=== PATIENT | female | born 1985 | race Asian ===

== ENCOUNTER 2019-02-06 22:49 | Inpatient (IN) | payer BC ==
[~2019-02-06] VITALS: Ht 152.4 cm; Wt 78.6 kg
[~2019-02-06 22:49] MED LIST: ACIDOPHILUS PO; BCP TD; BENADRYL25 M2; CEFIXIME; CEPHALEXIN500 M1 PO; LEVOXYL0.1 MG PO; LORTAB 5/500 501 TAB PO; MOTRIN 600600 MG/TAB PO; PERCOCET 325 MG1 TA2 PO; PHENERGAN 25 TA25 MG PO; PRENATAL1 TA1 PO; SYNTHROID0.088 MG/T PO
--- NOTE | 2019-02-06 22:55 | NUR ---
G3L2 at 39 weeks and 4 days arrives to unit with complaint of contractions every 5 minutes. Pt visibly uncomfortable but breathing through contractions well. Pt with a history of precipitous delivery with previous delivery. History of 2 uncomplicated vaginal deliveries. Pt oriented to room, bed in low and locked position, call light within reach. US and toco explained and applied. SVE 5-6/70/-[address]. Dr. Gavin notified, see physician notification. Admission assessment started.
[2019-02-06 23:15] VITALS: BP 118/71; PULSE 101; TEMP 98.1
--- NOTE | 2019-02-06 23:25 | NUR ---
18 gauge IV placed in right forearm after 1 attempt. Admission labs obtained off of IV start. Lactated Ringers infusing to gravity. Pen G started shortly after.
--- NOTE | 2019-02-06 23:30 | NUR ---
2330 - Leander Ledezma CRNA at bedside for epidural placement. Procedure risks and benefits explained to patient, pt verbalized understanding. 2333 - Pt positioned into sitting on edge of bed. 2337 - Single shot by DIOGENES Guido at this time, pt denies any adverse reactions. 2345 - Pt repositioned to laying to wedge left. Safety precautions reviewed with spouse and patient. Call light within reach.
[2019-02-06 23:45] VITALS: BP 131/58; PULSE 111; TEMP 98.2
[2019-02-06 23:48] LABS: BASO % 0.1 % (0.0-2.0); EOS # 0.1 (0.0-0.7); EOS % 1.3 % (0-4.0); GRAN # 7.1 (1.4-6.5); GRAN % 70.7 % (42.2-75.2); HEMOGLOBIN 13.2 g/dl (12.5-16.0); LYMPH # 2.1 (1.2-3.4); LYMPH % 20.9 % (20.0-51.0); MEAN CELL VOLUME 81 fl (80.0-100.0); MEAN CORPUSCULAR HEMOGLOBIN 26 pg (27.0-31.0); MEAN CORPUSCULAR HGB CONC 32 g/dl (33.0-37.0); MEAN PLATELET VOLUME 10.5 fl (7.4-10.4); MONO # 0.6 (0.1-0.6); MONO % 6.1 % (1.7-9.3); PLATELET COUNT 261 K/mm3 (130-400); RED BLOOD COUNT 5.09 M/mm3 (4.10-5.30); REDCELL DISTRIBUTION WIDTH-CV 15.1 % (11.5-14.5)
--- NOTE | 2019-02-06 23:55 | NUR ---
Prolonged deceleration down to 110 bpm. Pt repositioned to wedge right with return to baseline of 160 bpm.
[2019-02-07] VITALS (21 sets, daily range): BP systolic 88–151; BP diastolic 43–69; PULSE 79–106; TEMP 97.6–98
--- NOTE | 2019-02-07 00:05 | NUR ---
Pt reports feeling nauseous and shaky. BP 75/49. 10 mg ephedrine given IV at this time. 0012 - BP 94/62
--- NOTE | 2019-02-07 00:30 | NUR ---
Dr. Gavin at bedside to perform SVE and AROM. Procedure explained to patient. AROM of moderate amount of meconium fluid at 0030. SVE /-3. Pt remains positioned in wedge right.
--- NOTE | 2019-02-07 02:01 | NUR ---
Recurrent variable decelerations with contractions. SVE /-1. Pt repositioned to wedge left. FHR down to 100 bpm, repositioned to wedge right with return to baseline of 150 bpm.
--- NOTE | 2019-02-07 02:33 | NUR ---
0222 - SVE /+1, practice push with patient, good movement with pushes. 0223 - Dr. Gavin called for delivery. Nursery called for delivery. 0225 - Avila catheter removed 400 mL clear yellow urine. 0230 - Pt positioned into footplates. Dr. Gavin gowned and gloved at perineum. Pt educated on pushing techniques 0233 - Spontaneous vaginal delivery of viable baby girl. placed on mothers abdomen and bulb suctioned by Dr. Gavin. Care of assumed to Tammy nursery RN. 0238 - Spontaneous delivery of intact placenta. Fundal massage started by this RN. Fundus firm and down 1 from umbilicus. Pitocin initiated at 333 mL/hr per protocol. Second degree perineal laceration repaired by Dr. Gavin. Epidural off. 0245 - Pericare provided. New chux beneath patient. Ice pack to perineum. recovery started See physician delivery documentation
--- NOTE | 2019-02-07 04:50 | NUR ---
Pt able to lift and hold each leg off of bed for 5 seconds. Pt repositioned to sitting on edge of bed. Epidural catheter removed. Tip smooth, blue and intact. Bandaid applied to site. Pt able to ambulate to bathroom with 1 person assistance. Pt able to void 400 mL. Pericare explained and performed. New gown on. Mesh panties and peripad applied. Pt transferred to room 214 by wheelchair with belongings.
--- NOTE | 2019-02-07 11:16 | NUR ---
Initial visit; Parents thanked Director Compliance for offering congratulations and God's blessings for the of their daughter. Director Compliance thanked family for choosing [facility].
[2019-02-08 07:45] VITALS: BP 92/59; PULSE 66; TEMP 98.2
--- NOTE | 2019-02-08 07:45 | NUR ---
Rests in bed, alert. Denies any needs at this time.
[2019-02-08] MEDS ORDERED: IBU800 M1 PO (08:13)
--- NOTE | 2019-02-08 12:00 | NUR ---
Rests in bed, alert. baby. Request pain medication. Ibuprofen 800 mg given per request and as ordered.
[2019-02-08 16:45] VITALS: BP 107/58; PULSE 90; TEMP 98.7
[2019-02-08 22:20] VITALS: BP 100/44; PULSE 100
[2019-02-09 07:20] VITALS: BP 93/43; PULSE 71; TEMP 97.9
== END 2019-02-09 13:45 | disposition home or self-care (01) | DRG 807 ==
LOC: LDRO 22:49 → LDR 23:16 → OB 02-07 05:15
PROVIDERS: Obstetrics & Gynecology; ADMIT Obstetrics & Gynecology
PROC: 10E0XZZ Delivery of Products of Conception, External Approach (ICD-10-PCS; principal; 2019-02-07)
PROC: 0KQM0ZZ Repair Perineum Muscle, Open Approach (ICD-10-PCS; 2019-02-07)
DX: O99.824 Streptococcus B carrier state complicating childbirth (principal); Z37.0 Single live birth; O99.02 Anemia complicating childbirth; D64.9 Anemia, unspecified; O99.284 Endocrine, nutritional and metabolic diseases complicating childbirth; E03.9 Hypothyroidism, unspecified; O70.1 Second degree perineal laceration during delivery; O77.0 Labor and delivery complicated by meconium in amniotic fluid; Z3A.39 39 weeks gestation of pregnancy
CPT/HCPCS: J2540; J2590; J2795; J7120